=== PATIENT | female | born 1935 | race Caucasian/White ===

== ENCOUNTER 2020-12-23 00:31 | Emergency (ER) | payer OTHER ==
[~2020-12-23] VITALS: Ht 170.2 cm; Wt 72.0 kg
[2020-12-23 01:45] LABS: BASOPHILS % 0.6 % (0.0-2.0); HEMATOCRIT. 31.7 % (36.0-48.0); HEMOGLOBIN. 10.8 g/dL (12.0-16.0); LYMPHOCYTES % 23.9 % (20.0-50.0); MEAN CORPUSCULAR HEMOGLOBIN 31.4 pg (28.0-32.0); MEAN PLATELET VOLUME 7.1 fl (7.4-10.4); MONOCYTES % 9.8 % (2.0-8.0); NEUTROPHILS % 61.7 % (40.0-76.0); PLATELET 203 x1000/uL (130-400); RED BLOOD CELL COUNT 3.44 mill/uL (4.2-5.4); RED CELL DISTRIBUTION WIDTH 13.7 % (11.6-14.6)
[2020-12-23 02:04] LABS: CHLORIDE 106 mEq/L (98-107)
[2020-12-23 03:22] VITALS: BP 109/43
== END 2020-12-23 03:26 | disposition home or self-care (01) ==
LOC: ER 00:31
DX: K57.91 Diverticulosis of intestine, part unspecified, without perforation or abscess with bleeding (principal); R03.0 Elevated blood-pressure reading, without diagnosis of hypertension; I25.10 Atherosclerotic heart disease of native coronary artery without angina pectoris; Z95.5 Presence of coronary angioplasty implant and graft; Z92.89 Personal history of other medical treatment
CPT/HCPCS: 36415; 80053; 85025; 86850; 86900; 99283